=== PATIENT | male | born 1970 | race Caucasian/White ===

== ENCOUNTER 2021-09-10 19:39 | Emergency (ER) | payer BC ==
[~2021-09-10] VITALS: Ht 177.8 cm; Wt 85.0 kg
--- NOTE | 2021-09-10 19:42 | PHYS DOC ---
General Adult EDM: Chief Complaint: CHEST PAIN HPI: HPI: ".. I was diagnosed with Covid pneumonia on a test on last Saturday the .... Since that time he been having more....and more episodes of shortness of breath,,, I have seen my primary care physician ... He put me on inhalier,.. some steroids.. I also been [facility] a couple days ago... I just tonight .. got a lot more short of breath.. I wish I had gotten the vaccination.. now.. I was just being stubborn..." " I just feel some chest discomfort .. 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 Patient was diagnosed last Saturday on 09/02., Since that time he has had increased episodes of dyspnea, chest pain, fever, chills, nausea, vomiting, diarrhea, malaise, arthralgia, myalgia and generalized fatigue. Patient also does not get yearly flu vaccination. Patient denies any recent travel. No specific ill contacts. 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 Patient does not smoke. No previous history immunosuppression. No other significant health issues. Patient has been using a sat monitor at home which has been registering 95% however when he is active the saturations drops to 90%. Patient denies any previous history of coagulopathy with him or family members. Patient has been compliant with medications prescribed. Review of Systems: Review of Systems: Constitutional: Complains of fever or chills Eyes: Denies change in visual acuity HENT: Complains of of nasal congestion and rhinorrhea Respiratory: Complains of a nonproductive cough and shortness of breath Cardiovascular: Complains of chest pain GI: Complains of abdominal pain, nausea, vomiting, and diarrhea : Denies dysuria Musculoskeletal: Complains of of generalized myalgia arthralgia Integument: Denies rash Neurologic: Denies headache, focal weakness or sensory changes Endocrine: Denies polyuria or polydipsia Lymphatic: Denies swollen glands Psychiatric: Admits to being anxious over his Covid infection Family History: Family History: Noncontributory to presentation. Current Medications: Current Meds: See nursing for home meds Allergies: Allergies: No known drug allergies Physical Exam: PE: Constitutional: Moderate acute distress, non-toxic appearance. [] Patient at times noted to be hyperventilating HENT: Normocephalic, atraumatic, bilateral external ears normal, oropharynx moist, no oral exudates, nose swollen turbinates and clear rhinorrhea. Postnasal drainage. Eyes: PERRLA, EOMI, conjunctiva normal, no discharge. [] Neck: Normal range of motion, no tenderness, supple, no stridor. [] Trachea midline. Cardiovascular: Tachycardia heart rate regular rhythm, no murmur [] Lungs & Thorax: Bilateral breath sounds to apex with scattered wheezes and some basilar crackles on auscultation [] Abdomen: Bowel sounds hyperactive, soft, no tenderness, no masses, no pulsatile masses. [] Skin: Warm, dry, no erythema, no rash. Capillary refill less than 3 seconds in fingers Back: No tenderness, no CVA tenderness. [] Extremities: Generalized muscle and joint tenderness, no cyanosis, no clubbing, ROM intact, no edema. [] No cording appreciated Neurologic: Alert and oriented X 3, normal motor function, normal sensory function, no focal deficits noted. [] Psychologic: Affect extremely anxious , judgement normal, mood normal. [] EKG: EKG: My interpretation EKG shows a sinus rhythm at 98 bpm. Some baseline irregularity due to his hyperventilation. No findings of acute STEMI of contralateral changes. Time of EKG is 1950 hrs. [] My interpretation of second EKG shows a sinus rhythm at 87 bpm. Sinus rhythm. Left axis changes. But overall no acute interval change from prior EKG other than a slower rate. Time of this EKG is 2314 hrs. Radiology/Procedures: Radiology/Procedures: [][address] [address] IMAGING REPORT Signed PATIENT: LIANE SHRESTHA EACCOUNT: [id number] : 1970 LOCATION: ER AGE: 51 SEX: M EXAM STATUS: REG ER ORD. PHYSICIAN: MAXIMO STEINER MD REASON: cp, with covid PROCEDURE: CHEST PA & LATERAL EXAMINATION: CTA Chest With IV contrast INDICATION:51 years, Male, chest pain, COVID 19 pneumonia. COMPARISON: None. TECHNIQUE: Spiral CTA was obtained from the jugular notch through the posterior costophrenic recess. 3-D MIPS, sagittal and coronal reformats were obtained. Exposure: One or more of the following individualized dose reduction techniques were utilized for this examination: 1. Automated exposure control 2. Adjustment of the mA and/or kV according to patient size 3. Use of iterative reconstruction technique. FINDINGS: LUNGS/PLEURA: Central airways are patent. Peripheral predominant multifocal bilateral groundglass opacities. No pleural effusion or pneumothorax. There is a 6.5 mm pulmonary nodule in the lower lobe. There is a 2.7 mm fissure based nodule in the left upper lobe. There is a 6 mm fissure based nodule in the right lower lobe. Additional, multiple sub-5 mm pulmonary nodules in the right lung. Calcified granuloma in the superior segment left lower lobe. MEDIASTINUM: No pathologic mediastinal or hilar adenopathy. Calcified left hilar lymph nodes The thoracic aorta and pulmonary arteries are normal in caliber. No evidence of pulmonary embolism. The heart is normal in size. Trace amount of pericardial effusion. No detectable calcified coronary atherosclerosis. The visualized thyroid and the esophagus are unremarkable. AXILLA/SOFT TISSUE: No supraclavicular or axillary adenopathy. Regional soft tis sues are within normal limits. UPPER ABDOMEN: Ill-defined 3.1 cm incomplete peripherally enhancing lesion in right hepatic dome (series 4 image 120). Calcified granuloma in the spleen. BONES: No evidence of acute fractures or aggressive osseous lesions. IMPRESSION: 1. No evidence of pulmonary embolism. 2. Peripheral predominant multifocal bilateral groundglass opacities, consi stent with known Covid 19 pneumonia. 3. Multiple bilateral pulmonary nodules measuring up to 6.5 mm. Fleischner Society guidelines for management of incidental pulmonary nodule (Radiology 2017): Multiple solid nodules 6-8 mm: LOW-RISK and HIGH-RISK patient: CT at 3-6 months, then consider CT at 18-24 months. 4. Ill-defined 3.1 cm incomplete peripherally enhancing lesion in the right hepatic dome, indeterminate. Differential includes but not limited to hemangioma. Recommend further evaluation with nonemergent MRI liver. EXAMINATION: Chest radiograph. VIEWS: 2 COMPARISON: 09/23/2009 INDICATION:51 years, Male, Covid 19 pneumonia. Chest pain. FINDINGS: Normal cardiomediastinal silhouette. Multifocal bilateral pulmonary infiltrates. No pleural effusion or pneumothorax. No acute osseous process. IMPRESSION: Multifocal bilateral pulmonary infiltrates, consistent with known COVID 19 pneumonia. Electronically signed by: Puneet Simon MD (09/10/2021 10:38 PM) [facility] DICTATED AND SIGNED BY: PUNEET SIMON MD DATE: 09/10/212226 CC: CHANA ERICKSON DO; MAXIMO STEINER MD ~MTH0 0 Heart Score: C/O Chest Pain: Yes HEART Score for Chest Pain: HEART Score for Chest Pain Response (Comments) Value History Slighlty/Non-Suspicious 0 ECG Normal 0 Age >45 - < 65 1 Risk Factors 1 or 2 Risk Factors 1 Troponin < Normal Limit 0 Total 2 Risk Factors: Risk Factors: DM, Current or recent (<one month) smoker, HTN, HLP, family his tory of CAD, obesity. Risk Scores: Score 0 - 3: 2.5% MACE over next 6 weeks - Discharge Home Score 4 - 6: 20.3% MACE over next 6 weeks - Admit for Clinical Observation Score 7 - 10: 72.7% MACE over next 6 weeks - Early Invasive Strategies Course & Med Decision Making: Course & Med Decision Making Pertinent Labs and Imaging studies reviewed. (See chart for details) Patient to continue meds as previously prescribed. Would start Zithromax to 250 mg a day for the next 5 days. Patient strongly advised to increase his use of incentive spirometer and was instructed on its use. Patient to check his sat. monitor for episode of persent desaturations. Return if any concerns. Follow- up primary care. When over this acute illness would recommend patient get flu vaccination and Pneumovax. Patient to have his primary care reviewed the ED record. Suspect patient's chest pain or discomfort is primary related to his Covid pneumonia. Patient has several areas of infiltrate that reached to the pleura, particularly in the lower lung cuts. There is no obvious areas of pulmonary embolisms. Patient was started on Eliquis 10 mg twice a day for next 7 days. Patient to have a follow-up ultrasound of legs if concerned about DVT. Current exam is not consistent with DVT., Pt. advised to maintain activity, continue to practice Covid isolation. Wear a mask that covers nose and mouth when he is in contact with anyone outside the home. Continue use of Tylenol and ibuprofen as needed for discomfort. May use Mucomyst. MUST WORK ON HIS INCENTIVE BREATHING, to prevent further atelectasis. Impression: 1. COVID Pneumonia- Dx. 09/02 2. Mild Elevation D-dimer 0.92 3. Mild Elevatrion of AST 65/ALT 73 4. Elevated CRP= 28.6 5. Milid Hyponatremia 132 6. Chest Pain/chest wall pleuritic [] Dragon Disclaimer: Dragon Disclaimer: This electronic medical record was generated, in whole or in part, using a voice recognition dictation system. Departure Departure: Referrals: CHANA ERICKSON DO (PCP) Scripts Azithromycin (ZITHROMAX) 250 Mg Tablet 250 MG PO DAILY for ANTI-BIOTIC for 5 Days, #5 TAB 0 Refills Prov: MAXIMO STEINER MD 09/10/21 Apixaban (ELIQUIS) 5 Mg Tablet 10 MG PO BID for elevaed D-dimer for 7 Days, #28 TAB Prov: MAXIMO STEINER MD 09/10/21 Dragon Disclaimer This chart was dictated in whole or in part using Voice Recognition software in a busy, high-work load, and often noisy Emergency Department environment. It may contain unintended and wholly unrecognized errors or omissions. Dragon Disclaimer This chart was dictated in whole or in part using Voice Recognition software in a busy, high-work load, and often noisy Emergency Department environment. It may contain unintended and wholly unrecognized errors or omissions. MAXIMO STEINER MD Sep 10, 2021 19:42
[2021-09-10] MEDS ORDERED: CONTRAST GIVEN. MC PRN (20:15)
[2021-09-10] MEDS: ASPIRIN CHEWABLE 81 MG TABLET. PO ONE (20:23)
[2021-09-10] MEDS: IV RINGERS SOLUTION,LACTATED 1,000 ML IV SCH (20:23)
[2021-09-10] MEDS: KETOROLAC 30 MG/ML VIAL. IVP ONE (20:23)
[2021-09-10] MEDS: AZITHROMYCIN 250 MG TABLET. PO ONE (20:24)
[2021-09-10 20:39] LABS: BASO % 0 % (0-3); EOS % 0 % (0-3); HEMATOCRIT 41.1 % (39.0-53.0); HEMOGLOBIN 14.1 g/dL (13.0-17.5); LYMPH # 0.6 x10^3/uL (1.0-4.8); LYMPH % 16 % (24-48); MEAN CORPUSCULAR HEMOGLOBIN 28 pg (25-35); MEAN CORPUSCULAR HGB CONC 34 g/dL (31-37); MEAN CORPUSCULAR VOLUME 83 fL (79-100); MONO # 0.3 x10^3/uL (0.0-1.1); MONO % 8 % (0-9); NEUT # 2.7 x10^3uL (1.8-7.7); NEUT % 76 % (31-73); PLATELET COUNT 226 x10^3/uL (140-400); RED BLOOD COUNT 4.95 x10^6/uL (4.30-5.70); RED CELL DISTRIBUTION WIDTH 13.8 % (11.5-14.5); WHITE BLOOD COUNT 3.6 x10^3/uL (4.0-11.0)
[2021-09-10] MEDS: IOHEXOL 350 MG/ML 100 ML VIAL. IV ONE (20:43)
[2021-09-10 20:47] LABS: CREATININE 1.1 mg/dL (0.7-1.3); GFR 70.9; POTASSIUM 3.6 mmol/L (3.5-5.1)
[2021-09-10 21:01] LABS: ALBUMIN 3.3 g/dL (3.4-5.0); DIRECT BILIRUBIN 0.2 mg/dL (0.0-0.2); MAGNESIUM 1.9 mg/dL (1.8-2.4); TOTAL BILIRUBIN 0.5 mg/dL (0.2-1.0); TOTAL PROTEIN 7.1 g/dL (6.4-8.2)
[2021-09-10 22:12] LABS: BARBITURATES NEG (NEG); BENZODIAZEPINES NEG (NEG); CANNABINOIDS NEG (NEG); COCAINE NEG (NEG); METHADONE NEG (NEG); OPIATES NEG (NEG); PHENCYCLIDINE NEG (NEG)
[2021-09-10 22:14] LABS: BACTERIA,URINE 0 /HPF (0-FEW); BILIRUBIN,URINE NEG (NEG); CLARITY,URINE CLEAR; COLOR,URINE YELLOW; GLUCOSE,URINE NEG (NEG); NITRITE,URINE NEG (NEG); RBC,URINE 0 /HPF (0-2); SQUAMOUS EPITHELIAL CELL,UR OCC /LPF; UROBILINOGEN,URINE 0.2 mg/dL (0.2 mg/dL); WBC,URINE 0 /HPF (0-4)
[2021-09-10 22:15] LABS: AMPHETAMINE/METHAMPHETAMINE NEG (NEG)
--- NOTE | 2021-09-10 22:40 | RAD ---
EXAMINATION: CTA Chest With IV contrast INDICATION:51 years, Male, chest pain, COVID 19 pneumonia. COMPARISON: None. TECHNIQUE: Spiral CTA was obtained from the jugular notch through the posterior costophrenic recess. 3-D MIPS, sagittal and coronal reformats were obtained. Exposure: One or more of the following individualized dose reduction techniques were utilized for thi s examination: 1. Automated exposure control 2. Adjustment of the mA and/or kV according to patient size 3. Use of iterative reconstruction technique. FINDINGS: LUNGS/PLEURA: Central airways are patent. Peripheral predominant multifocal bilateral groundglass opa cities. No pleural effusion or pneumothorax. There is a 6.5 mm pulmonary nodule in the lower lobe. Th ere is a 2.7 mm fissure based nodule in the left upper lobe. There is a 6 mm fissure based nodule in the right lower lobe. Additional, multiple sub-5 mm pulmonary nodules in the right lung. Calcified gr anuloma in the superior segment left lower lobe. MEDIASTINUM: No pathologic mediastinal or hilar adenopathy. Calcified left hilar lymph nodes The thor acic aorta and pulmonary arteries are normal in caliber. No evidence of pulmonary embolism. The heart is normal in size. Trace amount of pericardial effusion. No detectable calcified coronary atheroscle rosis. The visualized thyroid and the esophagus are unremarkable. AXILLA/SOFT TISSUE: No supraclavicular or axillary adenopathy. Regional soft tissues are within martín l limits. UPPER ABDOMEN: Ill-defined 3.1 cm incomplete peripherally enhancing lesion in right hepatic dome (ser ies 4 image 120). Calcified granuloma in the spleen. BONES: No evidence of acute fractures or aggressive osseous lesions. IMPRESSION: 1. No evidence of pulmonary embolism. 2. Peripheral predominant multifocal bilateral groundglass opacities, consistent with known Covid 19 pneumonia. 3. Multiple bilateral pulmonary nodules measuring up to 6.5 mm. Fleischner Society guidelines for ma nagement of incidental pulmonary nodule (Radiology 2017): Multiple solid nodules 6-8 mm: LOW-RISK and HIGH-RISK patient: CT at 3-6 months, then consider CT at 18-24 months. 4. Ill-defined 3.1 cm incomplete peripherally enhancing lesion in the right hepatic dome, indetermin ate. Differential includes but not limited to hemangioma. Recommend further evaluation with nonemerge nt MRI liver. EXAMINATION: Chest radiograph. VIEWS: 2 COMPARISON: 09/23/2009 INDICATION:51 years, Male, Covid 19 pneumonia. Chest pain. FINDINGS: Normal cardiomediastinal silhouette. Multifocal bilateral pulmonary infiltrates. No pleural effusion or pneumothorax. No acute osseous process. IMPRESSION: Multifocal bilateral pulmonary infiltrates, consistent with known COVID 19 pneumonia. Electronically signed by: Lewis Simon MD (09/10/2021 10:38 PM) [facility]
--- NOTE | 2021-09-10 22:41 | EKG ---
[address] [address] Test Date: 2021-09-10 Test Time: 19:51:15 Pat Name: LIANE SHRESTHA Department: Room: Gender: Environmental Director: : 1970 Requested By: MAXIMO STEINER Order Number: [id number] Reading MD: Measurements Intervals [place] Rate: 98 P: 28 [place]: 160 QRS: 65 QRSD: 88 T: 35 QT: 322 QTc: 413 Interpretive Statements SINUS RHYTHM NORMAL ECG RI6.02 No previous ECG available for comparison
[2021-09-10] MEDS ORDERED: AZIT250T PO (22:55)
[2021-09-10] MEDS ORDERED: APIX5TAB3 PO (22:55)
--- NOTE | 2021-09-11 00:10 | EKG ---
[address] [address] Test Date: 2021-09-10 Test Time: 23:14:16 Pat Name: LIANE SHRESTHA Department: Room: Gender: M Hospital Educator: : 1970 Requested By: MAXIMO STEINER Order Number: [id number] Reading MD: Measurements Intervals [place] Rate: 87 P: 36 PA: 180 QRS: -3 QRSD: 86 T: 14 QT: 354 QTc: 427 Interpretive Statements SINUS RHYTHM LEFTWARD AXIS OTHERWISE NORMAL ECG RI6.02 No previous ECG available for comparison
[2021-09-11] MEDS: APIXABAN 5 MG TABLET. PO SCH (01:04)
[2021-09-11 01:10] VITALS: BP 108/64
== END 2021-09-11 01:18 | disposition home or self-care (01) ==
LOC: ER 19:39
DX: U07.1 COVID-19 (principal); J12.82 Pneumonia due to coronavirus disease 2019; R79.1 Abnormal coagulation profile; R79.89 Other specified abnormal findings of blood chemistry; R79.82 Elevated C-reactive protein (CRP); E87.1 Hypo-osmolality and hyponatremia
CPT/HCPCS: 36415; 71046; 71275; 80048; 80076; 80307; 81001; 82550; 83690; 83735; 83880; 84443; 84484; 85025; 85379; 85610; 85730; 86140; 87426; 93005; 96361; 96374; 99285; C9803; G0238; J1885; J7120; Q9967; U0003

== ENCOUNTER 2021-09-13 18:11 | Emergency (ER) | payer BC ==
[~2021-09-13] VITALS: Ht 177.8 cm; Wt 85.0 kg
[~2021-09-13 18:11] MED LIST: APIX5TAB3 PO; AZIT250T PO
[2021-09-13] MEDS ORDERED: ALBUTEROL SULFATE 8GM INHALER. INH ONE (18:45)
--- NOTE | 2021-09-13 19:05 | RAD ---
Exam: Chest one view INDICATION: Shortness of breath, Covid TECHNIQUE: Frontal view of the chest Comparisons: 09/10/2021 FINDINGS: The cardiomediastinal silhouette and pulmonary vessels are within normal limits. Patchy bilateral airspace disease. No pleural effusion. IMPRESSION: Patchy bilateral airspace disease consistent with history of Covid. Electronically signed by: Zoila Valdovinos MD (09/13/2021 7:03 PM) [facility]
--- NOTE | 2021-09-13 19:19 | PHYS DOC ---
Past History Additional Past Medical Histor: hearing loss (TIM GOMEZ) Past Surgical History: Tonsillectomy (TIM GOMEZ) Alcohol Use: Occasionally Additional Alcohol Information: 3-4 beers noc (TIM GOMEZ) General Adult EDM: Chief Complaint: SHORTNESS OF BREATH HPI: HPI: Patient is a 51 year old male with known COVID pneumonia who presents with persistent shortness of breath. Patient was seen here in the department a few days ago for similar complaints. Patient reports that he "should be feeling better." Patient was diagnosed with COVID-19 infection 11 days ago. He has had at least 2 visits at [facility] emergency department and one other visit here. Patient reports he uses a pulse oximeter at home, and all of his saturation readings have been 91% or above. He has been using his incentive spirometer as directed. Today, he reports he was unable to take as deep of breath compared to usual. He denies any new complaints, his only anxiety surrounding persistent symptoms. Full list of symptoms include fever, weakness, insomnia, shortness of breath. (TIM GOEMZ) Review of Systems: Review of Systems: Constitutional: See HPI Eyes: Denies change in visual acuity HENT: Denies nasal congestion or sore throat Respiratory: See HPI Cardiovascular: Denies chest pain or edema GI: Denies abdominal pain, nausea, vomiting, bloody stools or diarrhea : Denies dysuria or hematuria Musculoskeletal: Denies back pain or joint pain Integument: Denies rash or other skin lesions Neurologic: Denies headache, focal weakness or sensory changes Psychiatric: See HPI (TIM GOMEZ) Current Medications: Current Meds: Current Medications Medications (Trade) Dose Ordered Sig/Emy Start Time Stop Time Status Last Admin Dose Admin Albuterol Sulfate (Ventolin Hfa Inhaler) 2 puff 1X ONCE 09/13/21 18:45 09/13/21 18:58 DC (TIM GOMEZ) Allergies: Allergies: Allergies Coded Allergies Type Severity Reaction Last Updated Verified No Known Drug Allergies 09/13/21 No (TIM GOMEZ) Physical Exam: PE: Constitutional: Well developed, well nourished, patient appears to be taking shallow breaths, non-toxic appearance. HENT: Normocephalic, atraumatic, bilateral external ears normal, oropharynx moist, nose normal. Eyes: EOMI, conjunctiva normal, no discharge. Cardiovascular: Heart rate regular rhythm, no murmur. Lungs & Thorax: Diminished breath sounds diffusely, especially in the bases. Abdomen: Bowel sounds normal, soft, no tenderness, no masses, no pulsatile masses. Skin: Warm, dry, no erythema, no rash. Back: No tenderness, no CVA tenderness. Extremities: No tenderness, no cyanosis, no clubbing, ROM intact, no edema. Neurologic: Alert and oriented x4, normal motor function, normal sensory function, no focal deficits noted. Psychologic: Affect anxious, fair judgment, mood "worried." (TIM GOMEZ) Current Patient Data: Vital Signs: Vital Signs Date Time Temp Pulse Resp B/P (MAP) Pulse Ox O2 Delivery O2 Flow Rate FiO2 09/13/21 18:28 83 26 116/68 (84) 97 Room Air (TIM GOMEZ) Radiology/Procedures: Radiology/Procedures: PROCEDURE: PORTABLE CHEST 1V Exam: Chest one view INDICATION: Shortness of breath, Covid TECHNIQUE: Frontal view of the chest Comparisons: 09/10/2021 FINDINGS: The cardiomediastinal silhouette and pulmonary vessels are within normal limits. Patchy bilateral airspace disease. No pleural effusion. IMPRESSION: Patchy bilateral airspace disease consistent with history of Covid. Electronically signed by: Zoila Valdovinos MD (09/13/2021 7:03 PM) TREVON (TIM GMOEZ) Heart Score: C/O Chest Pain: N/A (TIM GOMEZ) Course & Med Decision Making: Course & Med Decision Making Pertinent Labs and Imaging studies reviewed. (See chart for details) Patient work-up today consists of chest x-ray and continuous O2 saturation monitoring. Patient was provided with albuterol inhaler treatment with spacer. Chest x-ray is largely unchanged from prior. Advised him to continue on treatments and medication prescribed at his last visit. Had a lengthy discussion about course of COVID-19 pneumonia, and informed him that he likely would have several weeks of symptoms. Patient given strict instruction for oxygen saturation monitoring and concerns for return and possible admission. Patient states that his is also very concerned, which has contributed to his frequent ER visits. I informed the patient that I would be more than willing to speak with her to provide the same instruction. Patient understands and is agreeable to discharge plan. (TIM GOMEZ) Yoana Disclaimer: Yoana Disclaimer: This electronic medical record was generated, in whole or in part, using a voice recognition dictation system. (TIM GOMEZ) Departure Departure: Impression: Primary Impression: Pneumonia due to COVID-19 virus Additional Impression: Anxiety about health Disposition: 01 HOME / SELF CARE / HOMELESS Condition: STABLE Referrals: CHANA ERICKSON DO (PCP) Patient Instructions: Incentive Spirometer Additional Instructions: You have been tested for or diagnosed with COVID-19. It is an infection caused by a new type of coronavirus. COVID-19 will cause cold-like or mild flu symptoms in most. It can cause more severe symptoms like problems breathing in some. There is no treatment for COVID-19. The body will clear the infection over time. Self-care will help to ease discomfort. Rest as needed. Healthy habits may help you feel better. Steps to take: - Choose healthy foods including fruits and vegetables. Drink water throughout the day. - Get plenty of sleep each night. - If you smoke, try to quit. It may ease breathing. - Avoid alcohol. - Keep Others Healthy - The virus can spread to others. Droplets are released every time you sneeze or cough. The droplets can get into the mouth, nose, or eyes of people near you and lead to infection. To lower the chances of spreading COVID-19 to others: Stay at home until your doctor has said it is safe to leave. If you tested positive this will mean staying isolated until both of the following are true: - At least 7 days have passed since the start of illness. - You are free of fever for at least 72 hours without the use of medicine. During this time: - Avoid public areas, events, or transportation. Do not return to work or school until your doctor has said it is safe to do so. - Call ahead if you need to go to a medical center. Let them know you may have COVID-19. It will help them guide you where to go. They may also ask you to wear a facemask when you come to the office. - If you call for emergency medical services, let them know you may have COVID- 19. While at home: - Try to avoid close contact with others. Stay about 6 feet away. - If possible, spend most of your time in a separate room from others. - Use a face mask if you will be in close contact with others such as sharing a room or vehicle. - Have someone wipe down common surfaces in the home. Use household larry car operator every day on areas like doorknobs, counters, or sinks. - Cough or sneeze into a tissue. Throw the tissue away right after use. If a tissue is not available, cough or sneeze into your elbow. - Wash your hands often. Wash them after sneezing or coughing. Use soap and water and wash for at least 20 seconds. Alcohol based hand telephone cleaner can be used if soap and water is not available. - Do not prepare food for others. Avoid sharing personal items like forks, spoons, or toothbrushes. - Avoid close contact with pets while you are sick. There is no evidence of the virus passing to pets. This is a safety step until more is known about this virus. Isolation can be frustrating. Social interaction can help. Keep in touch with friends and family through phone and tech options. You can still interact with others in your home, just keep a safe distance of about 6 feet. Follow-up: Your doctors office will check in with you to see if there are any changes in your health. You may be asked to keep track of symptoms to share with them. They will also let you know when you are clear to be in public again. Contact your doctor if your recovery is not going as you expect. Get emergency care if you have problems such as: - Trouble breathing - Nonstop chest pain or pressure - Changes in awareness, confusion, or problems waking - Lips or face have bluish color - Worsening of symptoms If you think you have an emergency, call for emergency medical services right away. As taken from [facility] Attending Signature Attending Signature I have participated in the care of this patient and I have reviewed and agree with all pertinent clinical information above including history, exam, and recommendations. (MAXIMO STEINER MD) Dragon Disclaimer This chart was dictated in whole or in part using Voice Recognition software in a busy, high-work load, and often noisy Emergency Department environment. It may contain unintended and wholly unrecognized errors or omissions. (MAXIMO STEINER MD) TIM GOMEZ Sep 13, 2021 19:19 MAXIMO STEINER MD Sep 14, 2021 06:37
[2021-09-13 20:25] VITALS: BP 122/75
== END 2021-09-13 20:45 | disposition home or self-care (01) ==
LOC: ER 18:11
DX: U07.1 COVID-19 (principal); J12.82 Pneumonia due to coronavirus disease 2019; F41.9 Anxiety disorder, unspecified
CPT/HCPCS: 71045; 94640; 99283; 94664

== ENCOUNTER 2021-09-28 09:38 | Emergency (ER) | payer BC ==
[~2021-09-28] VITALS: Ht 177.8 cm; Wt 87.1 kg
--- NOTE | 2021-09-28 10:35 | RAD ---
XR CHEST 1V 09/28/2021 10:10 AM INDICATION: Chest pain COMPARISON: 09/13/2021 TECHNIQUE: Portable frontal view of the chest is provided. FINDINGS: The cardiomediastinal silhouette is within normal limits. Peripheral and perihilar patchy interstitia l airspace disease appears similar within the left lung and marginally increased in the right midlung . There are no significant pleural effusions. There is no pulmonary vascular congestion. No pneumothora x. No suspicious osseous abnormality. IMPRESSION: Peripheral and perihilar patchy interstitial airspace disease appears similar within the left lung an d marginally increased in the right midlung. Electronically signed by: Irma Brown MD (09/28/2021 10:33 AM) [id number]
--- NOTE | 2021-09-28 10:38 | PHYS DOC ---
Past History Additional Past Medical Histor: hearing loss Past Surgical History: Tonsillectomy Alcohol Use: Occasionally General Adult EDM: Chief Complaint: CHEST PAIN HPI: HPI: 51-year-old male presents with right-sided chest pain and shortness of breath. Patient was driving when he started to have a coughing fit. After he stopped coughing, he had some right-sided and sternal chest discomfort. This pain lasted around 5 minutes. Now he just has mild discomfort on the right side of the sternum with deep inspiration. He denies shortness of breath or diaphoresis at this time. He called his primary care physician who advised that he come in for evaluation. The patient is getting over a Covid he was diagnosed just less than a month ago. Review of Systems: Review of Systems: Constitutional: Denies fever or chills Eyes: Denies change in visual acuity HENT: Denies nasal congestion or sore throat Respiratory: Cough with shortness of breath Cardiovascular: Chest pain GI: Denies abdominal pain, nausea, vomiting, bloody stools or diarrhea : Denies dysuria Musculoskeletal: Denies back pain or joint pain Integument: Denies rash Neurologic: Denies headache, focal weakness or sensory changes Endocrine: Denies polyuria or polydipsia Lymphatic: Denies swollen glands Psychiatric: Denies depression or anxiety Allergies: Allergies: Allergies Coded Allergies Type Severity Reaction Last Updated Verified No Known Drug Allergies 09/28/21 No Physical Exam: PE: Constitutional: Well developed, well nourished, no acute distress, non-toxic appearance. [] HENT: Normocephalic, atraumatic, bilateral external ears normal, oropharynx moist, no oral exudates, nose normal. [] Eyes: PERRLA, EOMI, conjunctiva normal, no discharge. [] Neck: Normal range of motion, no tenderness, supple, no stridor. [] Cardiovascular:Heart rate regular rhythm, no murmur [] Lungs & Thorax: Bilateral breath sounds clear to auscultation [] Abdomen: Bowel sounds normal, soft, no tenderness, no masses, no pulsatile masses. [] Skin: Warm, dry, no erythema, no rash. [] Back: No tenderness, no CVA tenderness. [] Extremities: No tenderness, no cyanosis, no clubbing, ROM intact, no edema. [] Neurologic: Alert and oriented X 3, normal motor function, normal sensory function, no focal deficits noted. [] Psychologic: Affect normal, judgement normal, mood normal. [] Current Patient Data: Vital Signs: Vital Signs Date Time Temp Pulse Resp B/P (MAP) Pulse Ox O2 Delivery O2 Flow Rate FiO2 09/28/21 09:45 98.6 90 18 117/79 (92) 98 Room Air EKG: EKG: Sinus rhythm, rate 86, normal axis, no ST elevation or depression. [] Radiology/Procedures: Radiology/Procedures: [] Impressions: XR CHEST 1V 09/28/2021 10:10 AM INDICATION: Chest pain COMPARISON: 09/13/2021 TECHNIQUE: Portable frontal view of the chest is provided. FINDINGS: The cardiomediastinal silhouette is within normal limits. Peripheral and perihilar patchy interstitial airspace disease appears similar within the left lung and marginally increased in the right midlung. There are no significant pleural effusions. There is no pulmonary vascular congestion. No pneumothorax. No suspicious osseous abnormality. IMPRESSION: Peripheral and perihilar patchy interstitial airspace disease appears similar within the left lung and marginally increased in the right midlung. Electronically signed by: Sarai Brown MD (09/28/2021 10:33 AM) [id number] DICTATED AND SIGNED BY: SARAI BROWN MD DATE: 09/28/21 1032 CC: CHANA ERICKSON DO; ALEAH KENDALL DO ~MTH0 0 Heart Score: C/O Chest Pain: Yes HEART Score for Chest Pain: HEART Score for Chest Pain Response (Comments) Value History Slighlty/Non-Suspicious 0 ECG Normal 0 Age >45 - < 65 1 Risk Factors 1 or 2 Risk Factors 1 Troponin < Normal Limit 0 Total 2 Risk Factors: Risk Factors: DM, Current or recent (<one month) smoker, HTN, HLP, family history of CAD, obesity. Risk Scores: Score 0 - 3: 2.5% MACE over next 6 weeks - Discharge Home Score 4 - 6: 20.3% MACE over next 6 weeks - Admit for Clinical Observation Score 7 - 10: 72.7% MACE over next 6 weeks - Early Invasive Strategies Course & Med Decision Making: Course & Med Decision Making Pertinent Labs and Imaging studies reviewed. (See chart for details) The patient's EKG is unremarkable. His labs are unremarkable. His troponin is negative. His chest x-ray was similar to previous it is consistent with COVID- 19 chest x-rays. Vital signs are stable. I do not believe any further treatment will help the patient. He is stable for discharge at this time. [] Dragon Disclaimer: Dragon Disclaimer: This electronic medical record was generated, in whole or in part, using a voice recognition dictation system. Departure Departure: Impression: Primary Impression: Chest pain Qualified Codes: R07.1 - Chest pain on breathing Additional Impression: Abnormal chest xray Disposition: HOME / SELF CARE / HOMELESS Condition: STABLE Referrals: CHANA ERICKSON DO (PCP) Patient Instructions: Chest Pain (Nonspecific), [id number] ALEAH KENDALL DO Sep 28, 2021 10:38
[2021-09-28 10:59] LABS: BASO # 0.1 x10^3/uL (0.0-0.2); BASO % 1 % (0-3); EOS # 0.2 x10^3/uL (0.0-0.7); EOS % 2 % (0-3); HEMATOCRIT 37.9 % (39.0-53.0); HEMOGLOBIN 12.7 g/dL (13.0-17.5); LYMPH # 1.9 x10^3/uL (1.0-4.8); LYMPH % 25 % (24-48); MEAN CORPUSCULAR HEMOGLOBIN 29 pg (25-35); MEAN CORPUSCULAR HGB CONC 34 g/dL (31-37); MEAN CORPUSCULAR VOLUME 85 fL (79-100); MONO # 0.9 x10^3/uL (0.0-1.1); MONO % 12 % (0-9); NEUT # 4.4 x10^3uL (1.8-7.7); NEUT % 59 % (31-73); PLATELET COUNT 328 x10^3/uL (140-400); RED BLOOD COUNT 4.46 x10^6/uL (4.30-5.70); RED CELL DISTRIBUTION WIDTH 14.4 % (11.5-14.5); WHITE BLOOD COUNT 7.5 x10^3/uL (4.0-11.0)
--- NOTE | 2021-09-28 11:32 | EKG ---
[address] [address] Test Date: 2021-09-28 Test Time: 09:53:55 Pat Name: LIANE SHRESTHA Department: Room: Gender: M Health Navigator: MARBELLA : 1970 Requested By: ALEAH KENDALL Order Number: [id number] Reading MD: Taras Cline Measurements Intervals [place] Rate: 86 P: 33 NE: 176 QRS: -4 QRSD: 86 T: 54 QT: 356 QTc: 429 Interpretive Statements SINUS RHYTHM LEFTWARD AXIS Electronically Signed On 09-28-2021 12:29:58 [employer] by Taras Cline
[2021-09-28 11:38] LABS: PLT ESTIMATE ADEQUATE (ADEQUATE)
[2021-09-28 11:41] LABS: CALCIUM 8.9 mg/dL (8.5-10.1); CREATININE 0.8 mg/dL (0.7-1.3); GFR 102.3; POTASSIUM 4.4 mmol/L (3.5-5.1)
[2021-09-28 11:45] VITALS: BP 120/77
[2021-09-28 11:47] LABS: ALBUMIN 3.2 g/dL (3.4-5.0); ALBUMIN/GLOBULIN RATIO 0.9 (1.0-1.7); TOTAL BILIRUBIN 0.3 mg/dL (0.2-1.0); TOTAL PROTEIN 6.7 g/dL (6.4-8.2)
== END 2021-09-28 12:06 | disposition home or self-care (01) ==
LOC: ER 09:38
DX: R07.89 Other chest pain (principal)
CPT/HCPCS: 36415; 71045; 80053; 84484; 85025; 93005; 99285-25